=== PATIENT | female | born 1930 | race Caucasian/White ===

== ENCOUNTER → 2016-03-30 | Outpatient (REF) | payer OTHER ==
[~2016-03-30] MED LIST: /ESOM40CA OR; /PANT40TA; ACET500C; ACET65TA OR; ACULAR 0.5% OS; ALTA5CAP OR; AMLO10TA2 PO; ASPI1TAB PO; ASPI81TA63 OR; ATEN50TA2; ATEN50TA2 OR; ATEN50TA2 PO; BABY81CH; CALCCHW12; CALCCHW12 OR; CENTRUM SILVER OR; CHONDROITIN; GLUC500T3; GLUCOSAMIN; GLUCOSAMIN PO; ISOS30BRAN OR; LANO0.1211 OR; LANO0.1211 PO; LANO0.252; LASI20TA OR; LASIX; LEVA500T PO; LISI10TA4; NITR0.4S SL; NITR4TASL SL; PLAV75TA2 OR; PREDFORTE OS; RAMI5CA PO; RANI300T PO; SIMV20TA2 OR; SIMV20TA2 PO; TYLE650T35 PO; VITMTA PO; [UNRECOGNIZED DRUG - CODE] OR; [UNRECOGNIZED DRUG - OTHER] OS
== END ==
LOC: M LAB REF 15:56
PROVIDERS: ATTEND Internal Medicine
DX: I48.0 Paroxysmal atrial fibrillation (principal)

== ENCOUNTER → 2016-08-24 | Outpatient (REF) | payer OTHER ==
[~2016-08-24] MED LIST changes: +LEVA1TAB2 PO; -LEVA500T PO
== END ==
LOC: M LAB REF 16:50
PROVIDERS: ATTEND Nurse Practitioner Family
DX: R53.81 Other malaise (principal)

== ENCOUNTER → 2017-02-22 | Outpatient (REF) | payer OTHER ==
[2017-02-22 18:31] LABS: DIGOXIN LEVEL 0.8 NG/ML (0.5-2.0)
== END ==
LOC: M LAB REF 16:10
DX: I48.0 Paroxysmal atrial fibrillation (principal)
CPT/HCPCS: 80162

== ENCOUNTER → 2017-06-21 | Outpatient (REF) | payer OTHER ==
[2017-06-21 22:55] LABS: DIGOXIN LEVEL 0.9 NG/ML (0.5-2.0)
== END ==
LOC: M LAB REF 17:09
DX: I48.0 Paroxysmal atrial fibrillation (principal)
CPT/HCPCS: 80162

== ENCOUNTER → 2017-12-20 | Outpatient (REF) | payer OTHER ==
[2017-12-20 17:28] LABS: DIGOXIN LEVEL 0.6 NG/ML (0.5-2.0)
[2017-12-20 17:48] LABS: FOLATE > 24.0 NG/ML
== END ==
LOC: M LAB REF 16:29
DX: I48.0 Paroxysmal atrial fibrillation (principal); G60.9 Hereditary and idiopathic neuropathy, unspecified
CPT/HCPCS: 80162

== ENCOUNTER → 2018-11-21 | Outpatient (REF) | payer OTHER ==
[~2018-11-21] MED LIST changes: -/ESOM40CA OR; -/PANT40TA; -AMLO10TA2 PO; +AMLO10TA5 PO; -ASPI1TAB PO; +ASPI81TA26 PO; +LANO0.12 PO; -LANO0.1211 PO; +NEXI1CAP3 OR; +PROT1TAB2; +RAMI1CAP24 PO; -RAMI5CA PO
== END ==
LOC: M LAB REF 16:03
PROVIDERS: ATTEND Nurse Practitioner Family
DX: I48.0 Paroxysmal atrial fibrillation (principal)

== ENCOUNTER → 2018-12-24 | Outpatient (REF) | payer OTHER ==
[2018-12-25 14:12] LABS: BASO # 0.1 10^3/uL (0.0-0.2); EOS % 10.8 % (0.0-3.0); HEMATOCRIT 41.6 % (36.0-47.0); HEMOGLOBIN 12.9 g/dl (12.0-15.5); LYMPH # 1.9 10^3/uL (1.5-5.0); MEAN CORPUSCULAR VOLUME 106.4 fl (80.0-96.0); MONO # 0.8 10^3/uL (0.0-0.8); MONO % 9.2 % (0.0-5.0); NEUTROPHILS # 5.2 10^3/uL (1.5-8.5); NEUTROPHILS % 57.8 % (36.0-66.0); RED BLOOD COUNT 3.91 10^6/uL (4.00-5.40)
[2018-12-25 14:27] LABS: CALCIUM LEVEL 9.7 MG/DL (8.8-10.2); CREATININE FOR GFR 1.7 MG/DL (0.55-1.30); GLOMERULAR FILTRATION RATE 30.1 (>32); POTASSIUM SERUM 4.5 MEQ/L (3.5-5.1)
[2018-12-25 14:40] LABS: PLATELET COUNT, AUTOMATED 78 10^3/uL (150-450)
== END ==
LOC: M LABDRWAD 13:31
PROVIDERS: ATTEND Physician Assistant
DX: R30.0 Dysuria (principal)

== ENCOUNTER → 2018-12-26 | Outpatient (REF) | payer MEDICARE, OTHER | LOC: M LAB REF 12:47 | PROVIDERS: ATTEND Physician Assistant | DX: R30.0 Dysuria (principal) ==

== ENCOUNTER → 2019-01-07 | Outpatient (REF) | payer MEDICARE | LOC: M LAB REF 16:44 | PROVIDERS: ATTEND Internal Medicine | DX: I48.0 Paroxysmal atrial fibrillation (principal) ==

== ENCOUNTER 2019-01-10 15:34 | Inpatient (IN) | payer MEDICARE ==
[~2019-01-10] VITALS: Ht 162.6 cm; Wt 45.3 kg
[~2019-01-10 15:34] MED LIST changes: -SIMV20TA2 PO; +SIMV20TA22 PO
[2019-01-10 16:03] LABS: BASO # 0.1 10^3/uL (0.0-0.2); BASO % 0.9 % (0.0-1.0); EOS # 0.8 10^3/uL (0.0-0.5); EOS % 8.6 % (0.0-3.0); HEMATOCRIT 34.2 % (36.0-47.0); HEMOGLOBIN 10.8 g/dl (12.0-15.5); LYMPH # 2.4 10^3/uL (1.5-5.0); LYMPH % 28.1 % (24.0-44.0); MEAN CORPUSCULAR HEMOGLOBIN 33.1 pg (27.0-33.0); MEAN CORPUSCULAR HGB CONC 31.6 g/dl (32.0-36.5); MEAN CORPUSCULAR VOLUME 104.9 fl (80.0-96.0); MONO # 0.7 10^3/uL (0.0-0.8); MONO % 7.6 % (0.0-5.0); NEUTROPHILS # 4.7 10^3/uL (1.5-8.5); NEUTROPHILS % 54.5 % (36.0-66.0); RED BLOOD COUNT 3.26 10^6/uL (4.00-5.40); WHITE BLOOD COUNT 8.7 10^3/uL (4.0-10.0)
[2019-01-10 16:14] LABS: PLATELET COUNT, AUTOMATED 75 10^3/uL (150-450)
[2019-01-10 16:16] LABS: CALCIUM LEVEL 8.9 MG/DL (8.8-10.2); CREATININE FOR GFR 1.56 MG/DL (0.55-1.30); GLOMERULAR FILTRATION RATE 33.3 (>32); POTASSIUM SERUM 4.1 MEQ/L (3.5-5.1)
[2019-01-10] MEDS ORDERED: RANI300T PO (17:44)
[2019-01-10] MEDS ORDERED: DIGO0.12 PO (17:44)
[2019-01-10] MEDS ORDERED: ATEN25TA PO (17:44)
[2019-01-10] MEDS ORDERED: SIME1CAP3 PO (17:44)
[2019-01-10] MEDS ORDERED: ACETAMINOPHEN 650MG ER TAB (TYLENOL ARTHRITIS) PO PRN (18:00)
[2019-01-10] MEDS ORDERED: FAMOTIDINE 20 MG TAB PO PRN (18:00)
[2019-01-10] MEDS ORDERED: NITROGLYCERIN 0.4 MG SUBL TABLET SL PRN (18:00)
[2019-01-10] MEDS ORDERED: OXYMETAZOLINE NASAL SPRAY (AFRIN) PRN (18:00)
--- NOTE | 2019-01-10 18:32 | HPE ---
DATE OF ADMISSION: 01/10/2019 PRINCIPAL DIAGNOSIS: Severe left epistaxis with acute blood loss anemia. PRIMARY CARE PROVIDER: Dr. Byron Gordon HISTORY: Christina Woods is an 88-year-old admitted for observation after having a severe episode of epistaxis. She has not had any recent problems with epistaxis. The last this happened was several years ago. She had persisting bleeding from the left nostril, going on several hours. In the emergency room, she was cauterized but she did drop her hemoglobin 2 grams and so is being admitted for observation. PAST MEDICAL HISTORY: Shows coronary artery disease. She had a coronary stent placed 10 years ago. She is not on any antiplatelet medications nor anticoagulants. She has also had a pacemaker. 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 She has a history of hypertensive heart disease, gastroesophageal (GE) reflux, hyperlipidemia, osteoporosis with kyphosis. HOME MEDICATIONS: - simvastatin 20 mg daily - ramipril 5 mg twice a day - Tylenol as needed - Nitrostat as needed - atenolol 25 mg twice a day - digoxin 0.0625 mg daily - ranitidine 300 mg daily - simethicone as needed ALLERGIES: DEMEROL, TEMAZEPAM, THIOPENTAL. SOCIAL HISTORY: Nonsmoker. No alcohol. Attentive family members. REVIEW OF SYSTEMS: No chest pain, palpitations, headache, syncope. PHYSICAL EXAMINATION: Blood pressure 170/86, pulse of 53, respiratory rate 18, 94% oxygen saturation. GENERAL APPEARANCE: She was alert, conversant. She has a small amount of blood trickling from the left nostril. She has a lot of dried blood on the left side of her face in her hair. LUNGS: Clear. HEART: Regular rate and rhythm, 1/6 systolic ejection murmur. ABDOMEN: Soft, nontender. No masses. EXTREMITIES: No peripheral edema. Good pulses. NEUROLOGIC: Nonfocal. LABORATORY DATA: Hemoglobin is 10.8 which is down from her baseline of 12.9 on 12/24/2018, white count 8.7, platelets are 75,000 (they were 78,000 on 12/24/2018). Sodium 145, potassium 4.1, BUN 35, creatinine 1.5, GFR 33. IMPRESSION: 1. Left epistaxis, cauterized in the emergency room. She will be admitted for observation overnight. I spoke with Dr. Gamino from ears, nose and throat (ENT). He has been consulted and is available should she have recurrence of bleeding. I have ordered Afrin nasal spray but this should be held if her systolic blood pressure is less than 150. We will also humidify oxygen. Followup complete blood count (CBC) has been ordered in the morning. 2. Thrombocytopenia. This is chronic. Her platelets were 88,000 on 01/16/2016, 100,000 on 01/15/2016, and 78,000 on . 3. Chronic kidney disease, stage III. This is also chronic. Baseline creatinine is around 1.5. Anticipate discharge in the morning if hemoglobin is stable and she does not have recurrence of the bleeding.
[2019-01-10 18:46] LABS: INR 1.24; PROTHROMBIN TIME 15.3 SECONDS (11.8-14.0)
[2019-01-10] MEDS ORDERED: hydrALAZINE INJ 20 MG/ML VIAL IV SCH ×2 (19:30→21:15)
[2019-01-10] MEDS: ATENOLOL 25 MG TAB PO SCH (19:33)
[2019-01-10] MEDS: RAMIPRIL 5 MG CAP PO SCH (19:40)
[2019-01-10] MEDS: CEFUROXIME 250 MG TAB PO SCH (21:00)
[2019-01-10] MEDS ORDERED: hydrALAZINE INJ 20 MG/ML VIAL As Ordered ONE (21:04)
[2019-01-10] MEDS: hydrALAZINE INJ 20 MG/ML VIAL IV SCH ×2 (21:15→23:58)
[2019-01-10] MEDS ORDERED: LISINOPRIL 20 MG TAB PO ONE (21:15)
[2019-01-10] MEDS: SIMVASTATIN 20 MG TAB PO SCH (21:36)
[2019-01-10 23:00] VITALS: BP 139/82
[2019-01-10] MEDS: DIGOXIN 0.0625MG PER 1/2TABLET PO SCH (23:58)
[2019-01-11] VITALS: BP 178/80
[2019-01-11 04:00] VITALS: BP 164/80
[2019-01-11] MEDS: hydrALAZINE INJ 20 MG/ML VIAL IV SCH ×2 (04:14→10:04)
[2019-01-11 05:38] LABS: HEMATOCRIT 28.2 % (36.0-47.0); HEMOGLOBIN 9.1 g/dl (12.0-15.5); MEAN CORPUSCULAR HGB CONC 32.3 g/dl (32.0-36.5); MEAN CORPUSCULAR VOLUME 102.2 fl (80.0-96.0); RED BLOOD COUNT 2.76 10^6/uL (4.00-5.40); WHITE BLOOD COUNT 9.3 10^3/uL (4.0-10.0)
[2019-01-11 05:40] LABS: PLATELET COUNT, AUTOMATED 67 10^3/uL (150-450)
[2019-01-11 05:52] LABS: CALCIUM LEVEL 9.1 MG/DL (8.8-10.2); CREATININE FOR GFR 1.54 MG/DL (0.55-1.30); GLOMERULAR FILTRATION RATE 33.8 (>32)
[2019-01-11 08:00] VITALS: BP 158/78
[2019-01-11] MEDS: ATENOLOL 25 MG TAB PO SCH ×2 (09:00→21:13)
[2019-01-11] MEDS: RAMIPRIL 5 MG CAP PO SCH ×2 (10:06→21:15)
[2019-01-11] MEDS: CEFUROXIME 250 MG TAB PO SCH ×2 (10:13→21:13)
--- NOTE | 2019-01-11 12:13 | IPN ---
DATE: 01/11/2019 Christina was admitted with epistaxis. Her hemoglobin has drifted down a bit from yesterday. The patient tells me that she has had persisting epistaxis but nursing staff indicates that she is not rebleeding. She is 88 and has some dementia. Her hemoglobin is down a little. PHYSICAL EXAMINATION: Afebrile. 150/78. HEENT: She has nasal packing in her left nostril. There is no active bleeding. There is no bleeding in the pharynx. LUNGS: Clear. HEART: Regular rhythm. /6 systolic ejection murmur. ABDOMEN: Soft, nontender. No masses. LABORATORIES: Hemoglobin 9.1, her baseline hemoglobin is 12.9, it was 10.8 yesterday and it is 9.1 today. BUN is up a little bit, probably from the swallowed blood being absorbed in the upper GI tract. Creatinine is stable. IMPRESSION: 1. Epistaxis. I think that the bleeding is essentially resolved, but her hemoglobin is down and it would be safer to watch her for another day and discharge her tomorrow. 2. Hypertension. Blood pressure is mildly elevated. She is on her home blood pressure regimen. We will augment this with low dose of amlodipine starting this morning.
[2019-01-11 12:48] VITALS: BP 130/78
[2019-01-11 14:39] LABS: APPEARANCE, URINE CLEAR (CLEAR); BACTERIA, URINE AUTO NEGATIVE (NEGATIVE); BILIRUBIN, URINE AUTO NEGATIVE (NEGATIVE); BLOOD, URINE BLOOD 1+ (NEGATIVE); COLOR, URINE YELLOW (YELLOW); GLUCOSE, URINE (UA) AUTO NEGATIVE (NEGATIVE); KETONE, URINE AUTO NEGATIVE (NEGATIVE); LEUKOCYTE ESTERASE, URINE AUTO NEGATIVE (NEGATIVE); MUCUS, URINE SMALL (NEGATIVE); NITRITE, URINE AUTO NEGATIVE (NEGATIVE); PROTEIN, URINE AUTO 3+ mg/dL (NEGATIVE); RBC, URINE AUTO 22 /HPF (0-3); SPECIFIC GRAVITY URINE AUTO 1.015 (1.002-1.035); SQUAMOUS EPITHELIAL CELL UR AU 1 /HPF (0-6); UROBILINOGEN, URINE AUTO 0.2 mg/dL (0.0-2.0); WBC, URINE AUTO 4 /HPF (0-3)
--- NOTE | 2019-01-11 14:48 | REP ---
REASON: Altered mental status. COMPARISON: Multiple, the latest 01/15/2016. AP and lateral views were obtained. There is cardiomegaly accentuated by technique. 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 There is a dual-chamber bipolar pacemaker device in place, the leads are contiguous, appropriate, and unchanged. There is a calcified granuloma in the right lower lobe status quo. This is an incidental finding. The lung amezcua are otherwise clear. The osseous structures are stable and intact. IMPRESSION: No evidence of acute cardiopulmonary disease. Chronic changes as described above. Electronically Signed by Brice Robertson DO 01/11/2019 03:09 P
[2019-01-11 16:00] VITALS: BP 140/76
[2019-01-11 20:00] VITALS: BP 144/74
[2019-01-11] MEDS: SIMVASTATIN 20 MG TAB PO SCH (21:13)
[2019-01-11] MEDS: DIGOXIN 0.0625MG PER 1/2TABLET PO SCH (21:13)
[2019-01-12] VITALS (11 sets, daily range): BP systolic 95–172; BP diastolic 62–90
[2019-01-12 07:53] LABS: CALCIUM LEVEL 9.1 MG/DL (8.8-10.2); CREATININE FOR GFR 1.63 MG/DL (0.55-1.30); GLOMERULAR FILTRATION RATE 31.6 (>32); POTASSIUM SERUM 4.2 MEQ/L (3.5-5.1)
[2019-01-12 08:23] LABS: HEMATOCRIT 29.3 % (36.0-47.0); HEMOGLOBIN 9.3 g/dl (12.0-15.5); MEAN CORPUSCULAR HEMOGLOBIN 33.1 pg (27.0-33.0); MEAN CORPUSCULAR HGB CONC 31.7 g/dl (32.0-36.5); MEAN CORPUSCULAR VOLUME 104.3 fl (80.0-96.0); RED BLOOD COUNT 2.81 10^6/uL (4.00-5.40); WHITE BLOOD COUNT 9.2 10^3/uL (4.0-10.0)
[2019-01-12 08:33] LABS: PLATELET COUNT, AUTOMATED 75 10^3/uL (150-450)
[2019-01-12] MEDS: RAMIPRIL 5 MG CAP PO SCH ×2 (08:56→22:21)
[2019-01-12] MEDS: CEFUROXIME 250 MG TAB PO SCH ×2 (08:56→21:42)
[2019-01-12] MEDS: ATENOLOL 25 MG TAB PO SCH (08:57)
[2019-01-12] MEDS ORDERED: CEFU1TAB20 PO (10:30)
[2019-01-12] MEDS ORDERED: FERR325T3 PO (10:30)
--- NOTE | 2019-01-12 10:51 | DSES ---
DATE OF ADMISSION: 01/10/2019 DATE OF DISCHARGE: PRINCIPAL DIAGNOSIS: Anterior epistaxis with acute blood loss anemia. SECONDARY DIAGNOSES: Hyperlipidemia. Hypertensive heart disease. Chronic thrombocytopenia. Stage III chronic kidney disease. Presumed atrial fibrillation. PRIMARY CARE PROVIDER: Dr. Byron Gordon MD HISTORY: Christina Woods was admitted with anterior epistaxis left nostril that was persisting despite emergency room cauterization. Her hemoglobin dropped 2 grams from baseline so she was admitted for observation. She was not on anticoagulants or antiplatelet medicines. HOSPITAL COURSE: She was admitted to a medical bed. She rebled from the left nostril in the emergency room so a "Rhino Rocket" was placed. ENT was consulted, but they never ended up needing to see her as the second procedure stopped the bleeding. We watched her in the hospital. Her hemoglobin ended up dropping down to 9.1 the day before discharge, but was stable at 9.3 on the day of discharge. She has chronic kidney disease stage III. Her renal functions remained stable. She had a little confusion the day before discharge. Some of this I think was related to hospitalization and having a packing in. We checked her digoxin level and it was therapeutic at 0.5. Today she is back to baseline mental status. Her son was with her. We had a long discussion. He thought she was back to her usual self. PHYSICAL EXAMINATION: 148/78, pulse 62, respiratory rate 17, 96% oxygen saturation. General appearance: She is resting comfortably with no distress. Left nasal packing in place. Lungs clear. Heart regular rhythm, 2/6 systolic ejection murmur. Abdomen soft, nontender, no masses. No peripheral edema. LABORATORIES: White count 9.2, hemoglobin 9.3, platelets 75. Sodium 143, potassium 4.2, BUN 38, creatinine 1.6, glucose 99, digoxin level 0.5. DISPOSITION: Patient discharged home with improved and stable condition. She will followup with Dr. Gordon in a week. Dr. Gamino from the ENT group in our phone conversation said that he would see the patient either the day after or two days after discharge so we are setting that up before discharge. Packing is still in place on discharge and this will be attended to by the ENT group. Activity as tolerated. She is on a no added salt diet. Her only new medication is Ceftin 250 mg twice a day for three more days for prevention of sinusitis due to the nasal packing. Otherwise, she will continue atenolol 25 mg twice a day, digoxin 0.0625 mg at bedtime, ramipril 5 mg twice a day, ranitidine 300 mg daily, simethicone as needed, simvastatin 20 mg at bedtime. I have advised that they start some supplemental iron, ferrous sulfate 325 mg daily with appropriate bowel care to prevent constipation. At the time of this dictation there are no pending labs.
[2019-01-12] MEDS ORDERED: ATENOLOL 25 MG TAB PO ONE (11:15)
--- NOTE | 2019-01-12 11:36 | IPN ---
DATE: 01/12/2019 I discharged Christina this morning. Her son was getting ready to take her home when she became suddenly tachycardic. Her heart rate has been in the 60s all morning and abruptly became about 140. Looked like a sinus tachycardia. Per the son, she does this "once or twice a month." Associated with the tachycardia is having pressure in the chest with shortness of breath. I canceled her discharge, gave her supplemental oxygen. We gave her a stat dose of atenolol 25 mg daily to supplement the morning dose of 25 she had already received and I ordered sublingual nitroglycerin. Stat EKG was obtained and shows some left anterior fascicular block, baseline LVH with ST changes, marked ST depression in her lateral precordial leads, ST elevation in V1, ST depression in lateral limb leads. I found a previous EKG from 01/03/2019 and it looks essentially the same as the current EKG, suggesting that this is probably her baseline. Consultation has been placed with Dr. Gonzalez, who is the patient's outpatient assistant professor of biochemistry. We discussed the case and he will see her in consultation. No antiplatelet medication has been given due to the patient's severe epistaxis requiring hospitalization and packing.
[2019-01-12 11:54] LABS: CK-MB VALUE MASS < 1.0 NG/ML (<3.6); CPK CREATINE PHOSPHOKINASE 43 U/L (26-192); MB/CK RELATIVE INDEX 2.33 (< OR =4); TROPONIN I < 0.02 NG/ML (< 0.10)
--- NOTE | 2019-01-12 12:55 | CR ---
DATE OF CONSULTATION: 01/12/2019 REFERRING PHYSICIAN: Dr. Callahan INDICATION: Narrow complex tachycardia. HISTORY OF PRESENT ILLNESS: Mrs. Woods is known to me. She is an 88-year-old lady who has a history of coronary artery disease with remote coronary intervention, status post pacemaker placement for sick sinus syndrome and history of recurrent supraventricular tachycardia. She was admitted with epistaxis. It was fairly severe and there was significant drop in hemoglobin. She needed a packing by ENT. Today she was getting ready to go home when she suddenly developed narrow complex tachycardia with heart rate fluctuating between 125 and 140 beats per minute associated with severe chest discomfort. She eventually received additional dose of atenolol and sublingual nitroglycerin and the arrhythmia suddenly stopped. She has been feeling much better now. Most of the history was provided by her son who is at the bedside. He tells me that she has similar episodes about once or twice a month. This has been the case for years and I was well aware of it. We previously offered or recommended that she undergoes EP evaluation and/or alternative antiarrhythmics including amiodarone, but the patient unfortunately refused. PAST MEDICAL HISTORY: 1. Coronary artery disease, status post percutaneous coronary intervention (PCI) to left anterior descending (LAD). Her last cardiac catheterization was in 2011 and revealed patent stent in LAD and no additional obstructive disease. Her last echocardiogram on my record was from 2010 and revealed normal LV systolic function, grade 1 diastolic dysfunction and mild pulmonary hypertension. She had an event recorder in February 2012 that revealed episodes of narrow complex tachycardia at about 120 bpm corresponding to her described palpitations. Very likely the same arrhythmia we are recording today. 2. Hypertension. 3. Dyslipidemia. 4. Chronic renal insufficiency stage III. 5. Chronic thrombocytopenia. OUTPATIENT MEDICATIONS: - atenolol 25 twice a day - digoxin 0.125 mg every other day - ramipril 5 mg a day - ranitidine 300 mg daily - simvastatin 20 mg at night SURGICAL HISTORY: Positive for resection of skin cancer on couple areas. Pacemaker placement with generator replacement. FAMILY HISTORY: Positive for CAD in both parents. SOCIAL HISTORY: The patient lives with significant other. Her sons are very attentive. She does not smoke and does not drink a significant amount of alcohol. REVIEW OF SYSTEMS: She denies any recent fever, chills, nausea, vomiting, no chest pain other than those associated with episodes of palpitations. No syncope but unfortunately there has been additional weight gain and apparently she has relatively limited oral intake with few exceptions of food that she really likes. Also, her activity level has been lately decreasing because it has been challenging for her to ambulate on account of leg weakness and knee pains. PHYSICAL EXAMINATION: Mrs. Woods is an elderly frail woman. She appears to me much older than I remember from her last visit 6 months ago. Blood pressure 135/77, heart rate currently in low 60s. She is afebrile. Saturation is 96% on room air. She is alert and oriented even though I need to wake her up in order to elicit some answers. Her JVP is not high. Lungs are clear. Good air movement. Heart exam reveals regular rhythm. I do not appreciate any gallop or rub. There is pacemaker in subclavian pocket. Abdomen is soft without tenderness. Extremities are free of edema. Peripheral pulses are palpable. There is packing in her left nostril. LABORATORY: Basic metabolic panel - sodium 143, potassium 4.2, BUN 38, creatinine 1.6, glucose 99. Cardiac enzymes are negative. Digoxin level was 0.5. INR was 1.2. CBC reveals hemoglobin 9.3, hematocrit 29.3, platelet count 75,000. Her admission hemoglobin was 10 and hematocrit 34, platelet count is similar to chronic findings. Urinalysis was 3+ positive for protein. Initial ECG revealed sinus rhythm with narrow QRS complex. The second EKG during the arrhythmia reveals narrow complex tachycardia with ventricular rate of 140 beats per minute. There are ischemic ST-segment abnormalities. Chest x-ray is unremarkable. No obvious cardiomegaly, congestive heart failure and appropriate lead position. ASSESSMENT/PLAN Mrs. Woods is an elderly woman who has chronic coronary artery disease with remote history of intervention who also has recurrent episodes of narrow complex tachycardia that is very symptomatic. This is on baseline digoxin 0.125 mg every other day plus atenolol 25 twice a day. She has had similar presentation for many years. In the past I offered various antiarrhythmics, most recently principally amiodarone and also offered electrophysiology intervention, but the patient always refused. At this point I think that our options are limited. I agree with Dr. Callahan with increasing the dose of beta-audi. I probably would continue the dose of digoxin as it is. What is unpleasant is that her atrial lead is malfunctioning, consequently if she gets overly bradycardic she has asynchronous ventricular pacing which is certainly also creating symptoms. Consequently, we are always trying to reduce the dose of beta blockers to allow spontaneous AV conduction. Nevertheless, I think that this continues lesser evil compared with episodes of SVT. I talked about this with her son. If she does not allow us to use additional antiarrhythmics I believe this is probably the only option. We should also consider possibility of EP study, but in her advanced age and overall very frail status, I am somewhat skeptical that she will be found to be a good candidate. As far as the ischemic changes or ECGs are concerned, I think it is probably a matter of tachycardia. I do not believe that it makes a diagnosis of obstructive CAD. Considering that she is chronically thrombocytopenic and just was admitted with severe epistaxis, I do not believe that we should put her on any antiplatelet agents.
[2019-01-12 17:54] LABS: CK-MB VALUE MASS 1.3 NG/ML (<3.6); MB/CK RELATIVE INDEX 3.17 (< OR =4); TROPONIN I 0.03 NG/ML (< 0.10)
--- NOTE | 2019-01-12 21:16 | ECGEPIP ---
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 : 1930 Requested By: Rolando Callahan Order Number: [id number] Reading MD: Markos Gonzalez Measurements Intervals [place] Rate: 144 P: [place]: 0 QRS: -64 QRSD: 92 T: 154 QT: 188 QTc: 291 Interpretive Statements ATRIAL FLUTTER/TACHYCARDIA WITH RAPID VENTRICULAR RESPONSE S1-S2-S3 PATTERN, CONSISTENT WITH PULMONARY DISEASE, RVH, OR NORMAL VARIANT LEFT ANTERIOR FASCICULAR BLOCK LEFT VENTRICULAR HYPERTROPHY AND ST-T CHANGE ANTERIOR MYOCARDIAL INFARCTION, OF INDETERMINATE AGE MARKED ST DEPRESSION, CONSIDER SUBENDOCARDIAL INJURY OVERALL VERY SIMILAR TO 01/15/16 Electronically Signed on 01-12-2019 21:16:02 EST by Markos Gonzalez
[2019-01-12] MEDS: SIMVASTATIN 20 MG TAB PO SCH (21:43)
[2019-01-12] MEDS: ATENOLOL 50 MG TAB PO SCH (21:43)
[2019-01-12] MEDS: DIGOXIN 0.0625MG PER 1/2TABLET PO SCH (21:44)
[2019-01-13 01:21] LABS: CK-MB VALUE MASS 1.1 NG/ML (<3.6); MB/CK RELATIVE INDEX 2.97 (< OR =4); TROPONIN I 0.02 NG/ML (< 0.10)
[2019-01-13 04:00] VITALS: BP 135/62
[2019-01-13 05:46] LABS: HEMATOCRIT 25.8 % (36.0-47.0); HEMOGLOBIN 8.2 g/dl (12.0-15.5); MEAN CORPUSCULAR HEMOGLOBIN 33.2 pg (27.0-33.0); MEAN CORPUSCULAR HGB CONC 31.8 g/dl (32.0-36.5); MEAN CORPUSCULAR VOLUME 104.5 fl (80.0-96.0); RED BLOOD COUNT 2.47 10^6/uL (4.00-5.40); WHITE BLOOD COUNT 7.4 10^3/uL (4.0-10.0)
[2019-01-13 06:00] LABS: PLATELET COUNT, AUTOMATED 72 10^3/uL (150-450)
[2019-01-13 06:09] LABS: BLOOD UREA NITROGEN 35 MG/DL (7-18); CALCIUM LEVEL 8.1 MG/DL (8.8-10.2); CARBON DIOXIDE LEVEL 26 MEQ/L (21-32); CHLORIDE LEVEL 110 MEQ/L (98-107); CREATININE FOR GFR 1.47 MG/DL (0.55-1.30); GLOMERULAR FILTRATION RATE 35.6 (>32); GLUCOSE, FASTING 96 MG/DL (70-100); SODIUM LEVEL 141 MEQ/L (136-145)
[2019-01-13 08:00] VITALS: BP 156/75
--- NOTE | 2019-01-13 08:13 | IPN ---
DATE: 01/13/2019 Mrs. Woods had a good night. There was no recurrence of supraventricular tachycardia (SVT) and she did not have any chest pain. She tells me that she is feeling much better this morning. Vital Signs: Blood pressure 135/62. Heart rate has been mostly in 50s and when she would dip below 50 she would start ventricular paced. Saturation 99% on room air. Blood pressure 135/62. She has been afebrile. Her weight has been documented at 45.3 kg, similar to all the way throughout this hospitalization. Her jugular venous pulse (JVP) does not appear high. Lungs are relatively clear even though she has some occasional end-inspiratory crackles mostly over bases. Very kyphotic spine. Heart exam reveals regular rhythm. There is a faint murmur best heard over the aortic valve area systolic in nature. I do not appreciate any gallop. Abdomen is soft without tenderness. No edema. Neurologically, she is alert and oriented and appropriate and otherwise intact. Laboratories: CBC: Hemoglobin 8.2, hematocrit 25.8 and platelet count 72,000. WBC count 7.4. Basic metabolic panel with sodium 141, potassium 4.0, BUN 35, creatinine 1.5 and glucose 96. Three sets of cardiac enzymes that have been negative. ASSESSMENT/PLAN: Mrs. Woods is an 88-year-old female who has a history of coronary artery disease (CAD) with intervention to left anterior descending (LAD) years ago who presented with epistaxis and during the hospitalization developed narrow complex tachycardia with associated chest discomfort and ST segment depressions. The arrhythmia stopped after less than an hour after administration of additional beta blockers. This has been a chronic pattern for her. She has had similar episodes for years. Unfortunately, she was never open to trying different antiarrhythmics and she also was not willing to undergo EP study. Consequently, she has been chronically on atenolol and digoxin. The dose of atenolol was doubled yesterday, I think we can leave the medications as they are. I am little bit concerned that she will be bradycardic enough in order to cause a lot of ventricular pacing which is not desirable, but still preferential compared to episodes of SVT. If this should not be successful, then I will have to approach again the possibility of starting amiodarone that she was adamantly against. Otherwise, her blood pressure seems to be reasonably well-controlled and I do not have any additional recommendations. Her hemoglobin has dropped some compared to yesterday even though there has not been any visible bleeding and the epistaxis has stopped. I will leave the decision regarding further management of this issue to the primary care team. She currently does not take any antiplatelet medications or any anticoagulation.
[2019-01-13] MEDS: ATENOLOL 50 MG TAB PO SCH (09:00)
[2019-01-13 10:07] LABS: CK-MB VALUE MASS < 1.0 NG/ML (<3.6); CPK CREATINE PHOSPHOKINASE 115 U/L (26-192); MAGNESIUM LEVEL 2.2 MG/DL (1.8-2.4); MB/CK RELATIVE INDEX 0.87 (< OR =4); TROPONIN I 0.02 NG/ML (< 0.10)
[2019-01-13] MEDS: RAMIPRIL 5 MG CAP PO SCH (10:31)
[2019-01-13] MEDS: CEFUROXIME 250 MG TAB PO SCH (10:31)
[2019-01-13 10:32] VITALS: BP 156/76
[2019-01-13 12:00] VITALS: BP 150/70
[2019-01-13] MEDS ORDERED: ATEN50TA2 PO (12:59)
--- NOTE | 2019-01-13 13:06 | IPNPDOC ---
Text Note Date of Service The patient was seen on 01/13/19. NOTE Subjective: Feels well, eager and anxious to go home. Son at bedside, asking for her to be discharged. Objective: Vitals: Hemodynamically stable and afebrile. HR now high 40s and 50s with asymptomatic bradycardia HEENT: She has nasal packing in her left nostril, no sign of active bleeding. LUNGS: CTAB HEART: RRR at this time, with 1/6 systolic ejection murmur. ABDOMEN: Normoactive bowel soudns, soft, nontender Extremities: WWP, no edema Labs: H/H drifted down to 8.2/25.8, Cr 1.47. Reviewed Assessment: 88 yo woman with a history of hyperlipidemia, hypertension, chronic thrombocytopenia, stage III chronic kidney disease and presumed atrial fibrillation who was admitted for epistaxis with acute blood loss anemia that improved with packing and was going to be discharged home yesterday with ENT and PCP follow up but prior to departure developed acute chest pain with noted SVT with EKG showing narrow complex tachycardia with some ST depression and discharge was deferred and cardiology consulted, while her atenolol was doubled to 50mg BID dosing with good effect, now c/b asymptomatic bradycardia. In speaking with Dr. Velásquez, will keep the 50 BID and discharge home for outpatient follow up as patient has a pacer that will kick in for bradycardia below 45. Will therefore discharge home this afternoon. Discharge summary was completed yesterday therefore this progress note is her discharge note. Epistaxis: -ENT to remove packing this after -Continue empiric ceftin for 5d course as prescribed -check one more H/H now to check for continued downtrend althoug no more signs of recurrent epistaxis at this time Chest pain with noted SVTs: -continue increased dose of atenolol 50mg BID -Dr. Velásquez predicted that she would likely have bradycardia but has a pacer that kicks in when <45. Had discussed antiarrhythmic therapies with her including amio that she has declined before, will continue conversation as an outpatient. -continue digoxin, level was recently checked and therapeutic -Will plan for outpatient cardiology follow up Hypertension: -continue home ramipril, discontinue novarsc that was added this admission as she just had her atenolol increased Hyperlipidemia: -continue simvastatin GERD: -continue pepcid Will discharge home after she is seen by ENT today. VS,Marvinbone, I+O VS, Fishbone, I+O Laboratory Tests 01/13/19 05:24 Vital Signs Date Time Temp Pulse Resp B/P (MAP) Pulse Ox O2 Delivery O2 Flow Rate FiO2 01/13/19 04:00 97.5 53 16 135/62 (86) 99 Room Air I&O- Last 24 Hours up to 6 AM 01/13/19 06:00 Intake Total 600 ml Output Total 400 ml Balance 200 ml AKOSUA KNIGHT MD Jan 13, 2019 08:39
[2019-01-13 13:42] LABS: HEMOGLOBIN 10.1 g/dl (12.0-15.5); MEAN CORPUSCULAR HEMOGLOBIN 32.8 pg (27.0-33.0); MEAN CORPUSCULAR HGB CONC 30.6 g/dl (32.0-36.5); MEAN CORPUSCULAR VOLUME 107.1 fl (80.0-96.0); RED BLOOD COUNT 3.08 10^6/uL (4.00-5.40); WHITE BLOOD COUNT 10.1 10^3/uL (4.0-10.0)
[2019-01-13 13:46] LABS: PLATELET COUNT, AUTOMATED 84 10^3/uL (150-450)
--- NOTE | 2019-01-13 20:33 | ECGEPIP ---
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
--- NOTE | 2019-01-14 13:32 | CR ---
DATE OF CONSULTATION: 01/13/2019 REASON FOR CONSULTATION: Patient with cautery and packing placed for epistaxis and the patient had significant hypertension planning to be discharged finally today and would like to have the packing removed. This pleasant lady was admitted on 01/10/2019, hae significant hypertension. She also has a history of hypertensive heart disease, chronic thrombocytopenia, stage III chronic kidney disease, and atrial fibrillation when she came to emergency room. Apparently, she had continued bleeding over the course of the day before she was brought in, initially cauterized by the emergency room (ER) physician, which had controlled it, and her blood pressure still was around the 200/100 range. It was cauterized and then she rebled again and then an anterior pack was placed left side. The patient had multiple other issues during hospitalization. Started having chest pains. Octave Board Racker did come in and reevaluate her. Initially, her hematocrit had stabilized over the last 2 days but today apparently it had a dropped a little bit. Initially when she came in was 34.2, then it was on 01/11/2019 28.2 and 29.3 and then 25.5 today. She has been stabilized and cleared by cardiology. She was scheduled to have the packing removed in my clinic today. At this point, we have decided that it is probably safer to come over and remove it from there. The nurses report no bleeding in the posterior oropharynx or in the hypopharynx during this period time, and has had no bleeding since she has been on the floor. She does have some dementia as well. PHYSICAL EXAMINATION: The patient is in room 3228 with her son at bedside and nurses present. She is pleasant. Currently, her vital signs show temperature 98.1, blood pressure 150/70. Pulse oximetry on room air was 99%. The patient has a left anterior rhino rocket in place. Posterior oropharynx shows no bleeding. At this point, procedure to remove the anterior packing the patient was preoxygenated with 10 liters of oxygen and she was told to breathe nice and smoothly through her oral cavity, which she did. The air was removed from the packing and then the packing was hydrated with saline. This was allowed to sit for 5 minutes while she preoxygenated, then the anterior pack was removed. There was no bleeding. Anterior septum showed the area where she had cautery before. There was no bleeding. Posterior oropharynx was clear. She was placed back on oxygen and the nurse will get a humidified circuit. We did this because yesterday she was ready to be discharged and then she had some arrhythmias, and she has a history of cardiac issues evaluated by her project reservoir engineer as well. Labs: She had a repeat lab for this morning. She had a hematocrit that was apparently 24.5 but then when redrawn today it was 33.0. Packing had been removed successfully with no bleeding. The patient is planned for discharge and the son is ready to get her set up to go. The patient had no problems. There is no complications. IMPRESSION: Epistaxis in the face of significant hypertension most likely as the culprit. Also, the patient has thrombocytopenia and also when she came in was on Coumadin. She is does not have a humidifier vaporizer in the bedroom. PLAN: At this point, the patient was told she should have a humidifier vaporizer in the bedroom or whatever room she is in, keep it moist and then blood pressure management will be left up to her project reservoir engineer as well as her primary care physician. The patient tolerated procedure well. The patient was left in the care of the nurse and she had no untoward sequelae from this.
== END 2019-01-13 16:24 | disposition home or self-care (01) | DRG 309 ==
LOC: M ED 15:34 → M ED INP 15:35 → M PCU 22:54 → OBSVTOIN 01-12 10:59
PROVIDERS: ADMIT Family Medicine; ATTEND Family Medicine
DX: I47.1 Supraventricular tachycardia (principal); D62 Acute posthemorrhagic anemia; R04.0 Epistaxis; D69.6 Thrombocytopenia, unspecified; N18.3 Chronic kidney disease, stage 3 (moderate); I48.91 Unspecified atrial fibrillation; E78.5 Hyperlipidemia, unspecified; Z79.899 Other long term (current) drug therapy; I25.10 Atherosclerotic heart disease of native coronary artery without angina pectoris; Z95.2 Presence of prosthetic heart valve; Z95.0 Presence of cardiac pacemaker; K21.9 Gastro-esophageal reflux disease without esophagitis; M81.0 Age-related osteoporosis without current pathological fracture; Z88.8 Allergy status to other drugs, medicaments and biological substances; Z85.828 Personal history of other malignant neoplasm of skin; I13.10 Hypertensive heart and chronic kidney disease without heart failure, with stage 1 through stage 4 chronic kidney disease, or unspecified chronic kidney disease

== ENCOUNTER 2019-02-09 23:21 | Emergency (ER) | payer MEDICARE ==
[~2019-02-09] VITALS: Ht 162.6 cm; Wt 47.7 kg
[~2019-02-09 23:21] MED LIST changes: +ATEN25TA PO; +CEFU1TAB20 PO; +DIGO0.123 PO; +FERR325T3 PO; +SIME1CAP3 PO
[2019-02-10] MEDS ORDERED: OXYMETAZOLINE NASAL SPRAY (AFRIN) ONE (00:15)
[2019-02-10 01:13] LABS: BASO # 0.1 10^3/uL (0.0-0.2); BASO % 0.9 % (0.0-1.0); EOS # 0.7 10^3/uL (0.0-0.5); EOS % 11.2 % (0.0-3.0); HEMATOCRIT 29.2 % (36.0-47.0); HEMOGLOBIN 9.1 g/dl (12.0-15.5); LYMPH # 1.4 10^3/uL (1.5-5.0); LYMPH % 21.4 % (24.0-44.0); MEAN CORPUSCULAR HEMOGLOBIN 33.5 pg (27.0-33.0); MEAN CORPUSCULAR HGB CONC 31.2 g/dl (32.0-36.5); MEAN CORPUSCULAR VOLUME 107.4 fl (80.0-96.0); MONO # 0.5 10^3/uL (0.0-0.8); MONO % 8.2 % (0.0-5.0); NEUTROPHILS # 3.7 10^3/uL (1.5-8.5); NEUTROPHILS % 57.8 % (36.0-66.0); RED BLOOD COUNT 2.72 10^6/uL (4.00-5.40); WHITE BLOOD COUNT 6.5 10^3/uL (4.0-10.0)
[2019-02-10 01:15] LABS: PLATELET COUNT, AUTOMATED 79 10^3/uL (150-450)
[2019-02-10 01:38] LABS: CALCIUM LEVEL 8.5 MG/DL (8.8-10.2); CREATININE FOR GFR 1.52 MG/DL (0.55-1.30); GLOMERULAR FILTRATION RATE 34.3 (>32); POTASSIUM SERUM 4.3 MEQ/L (3.5-5.1)
[2019-02-10 01:46] LABS: INR 1.31
[2019-02-10 01:47] LABS: PARTIAL THROMBOPLASTIN TIME 35.5 SECONDS (25.0-38.4)
[2019-02-10 02:37] VITALS: BP 167/70
== END 2019-02-10 02:43 | disposition home or self-care (01) ==
LOC: M ED 23:21
DX: R04.0 Epistaxis (principal); I25.10 Atherosclerotic heart disease of native coronary artery without angina pectoris; I10 Essential (primary) hypertension; Z79.899 Other long term (current) drug therapy; Z88.8 Allergy status to other drugs, medicaments and biological substances

== ENCOUNTER 2019-03-08 08:55 | Inpatient (IN) | payer MEDICARE ==
[2019-03-08] VITALS (10 sets, daily range): BP systolic 128–172; BP diastolic 67–89
[~2019-03-08] VITALS: Ht 162.6 cm; Wt 48.0 kg
[2019-03-08] MEDS ORDERED: SILVER NITRATE APPLICATOR TOP ONE (09:45)
[2019-03-08] MEDS ORDERED: OXYMETAZOLINE NASAL SPRAY (AFRIN) ONE (09:45)
[2019-03-08 10:15] LABS: BASO # 0.1 10^3/uL (0.0-0.2); BASO % 0.7 % (0.0-1.0); EOS # 0.6 10^3/uL (0.0-0.5); EOS % 5.1 % (0.0-3.0); HEMATOCRIT 30.2 % (36.0-47.0); HEMOGLOBIN 9.2 g/dl (12.0-15.5); LYMPH # 1.7 10^3/uL (1.5-5.0); LYMPH % 15.3 % (24.0-44.0); MEAN CORPUSCULAR HEMOGLOBIN 32.6 pg (27.0-33.0); MEAN CORPUSCULAR HGB CONC 30.5 g/dl (32.0-36.5); MEAN CORPUSCULAR VOLUME 107.1 fl (80.0-96.0); MONO # 0.7 10^3/uL (0.0-0.8); MONO % 6.5 % (0.0-5.0); NEUTROPHILS % 71.9 % (36.0-66.0); PLATELET COUNT, AUTOMATED 103 10^3/uL (150-450); RED BLOOD COUNT 2.82 10^6/uL (4.00-5.40); WHITE BLOOD COUNT 11.2 10^3/uL (4.0-10.0)
--- NOTE | 2019-03-08 10:19 | REP ---
Chest x-ray: Two views. History: Dizziness and cough. Comparison chest x-ray January 16, 2019. Findings: Cardiomegaly with bipolar pacemaker is seen. The lungs are symmetrically aerated and clear. The pleural angles are sharp. There is a granulomatous calcification in the right lower lobe of the lung. The aorta is calcific and rather tortuous unchanged. Mild levoconvex thoracic curvature is seen. No infiltrate is seen. Impression: Cardiomegaly with pacemaker. Right lower lobe granuloma. Otherwise no active disease. Electronically Signed by Henry Eddy MD 03/08/2019 10:10 A
[2019-03-08 10:25] LABS: INR 1.17; PROTHROMBIN TIME 14.6 SECONDS (11.8-14.0)
[2019-03-08 10:26] LABS: PARTIAL THROMBOPLASTIN TIME 31.5 SECONDS (25.0-38.4)
--- NOTE | 2019-03-08 10:33 | REP ---
CT BRAIN WITHOUT CONTRAST: HISTORY: Dizziness. History of a fall. COMPARISON STUDY: September 13, 2010 CT FINDINGS: Digital preliminary ornamenter hand radiograph is unremarkable. The patient is edentulous. The bony calvarium is intact. There is moderate vascular calcification in the distal vertebral and distal carotid arteries. There is patchy opacification of the ethmoid sinuses. There is mucosal thickening and partial opacification of the left frontal and left sphenoid sinuses. No intraorbital abnormality is seen. On soft tissue window settings, there is moderate generalized volume loss intracranially. There is no evidence of intracranial hemorrhage. Mild small vessel changes. There is no evidence of acute infarct or mass. No extra-axial fluid collection or midline shift is seen. Findings are stable from comparison study September 13, 2010, except that there is more pronounced generalized atrophy. IMPRESSION: Generalized volume loss. Vascular calcification. No acute intracranial abnormality. Electronically Signed by Henry Eddy MD 03/08/2019 02:28 P
[2019-03-08 10:42] LABS: ALT/SGPT 21 U/L (12-78); BILIRUBIN,TOTAL 0.4 MG/DL (0.2-1.0); BLOOD UREA NITROGEN 34 MG/DL (7-18); CALCIUM LEVEL 8.8 MG/DL (8.8-10.2); CARBON DIOXIDE LEVEL 28 MEQ/L (21-32); CHLORIDE LEVEL 110 MEQ/L (98-107); CK-MB VALUE MASS < 1.0 NG/ML (<3.6); CPK CREATINE PHOSPHOKINASE 39 U/L (26-192); CREATININE FOR GFR 1.43 MG/DL (0.55-1.30); GLOMERULAR FILTRATION RATE 36.8 (>32); GLUCOSE, FASTING 100 MG/DL (70-100); MB/CK RELATIVE INDEX 2.56 (< OR =4); POTASSIUM SERUM 4.4 MEQ/L (3.5-5.1); SODIUM LEVEL 144 MEQ/L (136-145)
[2019-03-08 10:43] LABS: ALBUMIN 2.9 GM/DL (3.2-5.2); NT-PRO BNP 1159 PG/ML (<450); TOTAL PROTEIN 6.7 GM/DL (6.4-8.2); TROPONIN I < 0.02 NG/ML (< 0.10)
[2019-03-08] MEDS ORDERED: FERR325T3 PO (12:02)
[2019-03-08] MEDS ORDERED: ATEN50TA2 PO (12:02)
[2019-03-08] MEDS ORDERED: ONDANSETRON 4MG/2ML VIAL (J2405) As Ordered ONE (14:48)
[2019-03-08] MEDS ORDERED: PANTOPRAZOLE 40MG INJ (PROTONIX) (C9113) IV ONE (15:00)
[2019-03-08] MEDS ORDERED: ONDANSETRON 4MG/2ML VIAL (J2405) IV ONE (15:15)
[2019-03-08] MEDS ORDERED: NS 1,000 ML IV ONE (15:15)
[2019-03-08 15:16] LABS: BASO # 0.1 10^3/uL (0.0-0.2); BASO % 0.5 % (0.0-1.0); EOS # 0.2 10^3/uL (0.0-0.5); EOS % 1.2 % (0.0-3.0); HEMATOCRIT 23.8 % (36.0-47.0); HEMOGLOBIN 7.2 g/dl (12.0-15.5); LYMPH # 2.3 10^3/uL (1.5-5.0); LYMPH % 18.6 % (24.0-44.0); MEAN CORPUSCULAR HEMOGLOBIN 32.6 pg (27.0-33.0); MEAN CORPUSCULAR HGB CONC 30.3 g/dl (32.0-36.5); MEAN CORPUSCULAR VOLUME 107.7 fl (80.0-96.0); MONO # 0.5 10^3/uL (0.0-0.8); MONO % 4.1 % (0.0-5.0); NEUTROPHILS # 9.3 10^3/uL (1.5-8.5); NEUTROPHILS % 74.6 % (36.0-66.0); PLATELET COUNT, AUTOMATED 90 10^3/uL (150-450); RED BLOOD COUNT 2.21 10^6/uL (4.00-5.40); WHITE BLOOD COUNT 12.5 10^3/uL (4.0-10.0)
[2019-03-08 16:00] LABS: FERRITIN 45 NG/ML (8-252); IRON (FE) 84 UG/DL (50-170); PERCENT SATURATION 28.4 % (13.2-45.0); TOTAL IRON BINDING CAPACITY 296 UG/DL (250-450)
[2019-03-08] MEDS: PANTOPRAZOLE SODIUM 40 MG in D5W 50 ML IV SCH (16:00)
[2019-03-08] MEDS ORDERED: LIDOCAINE W/EPINEPHRINE 1% 20ML VIAL As Ordered ONE (16:10)
[2019-03-08] MEDS ORDERED: LIDOCAINE W/EPINEPHRINE 1% 20ML VIAL SC ONE (16:15)
[2019-03-08] MEDS: atenoloL 50 MG TAB PO SCH (20:20)
[2019-03-08] MEDS: DIGOXIN 0.0625MG PER 1/2TABLET PO SCH (20:20)
--- NOTE | 2019-03-08 22:28 | HPEPDOC ---
General Date of Admission Mar 08, 2019 at 15:18 Date of Service: Mar 08, 2019 Chief Complaint The patient is a 88-year-old female admitted with a reason for visit of Anterior Epistaxis Gib. Source: Patient, Family, RN/, Old records History of Present Illness 88 year old female who lives wit a friend was brought to the ED today for Epistaxis which started at bout 5 am. Patient has history of recurrent epistaxis with admissions and ED visits for this. As per patient she has it off and on every 1 to 2 weeks and most are small and stop with pressure or nasal clamps however today it was large amount and was not stopping so her friend called her son and Son brought her to the ED. In the ED it was first cauterized by silver nitrate but did not work. She refused rhino packing. She was waiting to be evaluated by ENT when she wanted to have a bowel movement. Stood got to the commode by herself. Did not have any movement so came back to the bed and sat on the side and had a syncopal episode and fell backwards on to the bed. Her vitals immediately after was stable in fact with elevated BPs. She had a deann in the ED. Her repeat HH dropped to 7.2 from 9 so was ordered 2 units of PRBC. She was seen by Dr Holt and was cauterized which stopped the bleeding. Patient is being admitted for Epistaxis, Syncopal episode and possible GIB. Evaluation in ED showed showed that she had positive orthostasis, she was soiled in urine when she came and as per PA seemed to be confused. On my evaluation and as per her son she was at her baseline. Says she is weak and son says she does get confused when she is sick however is independent in all her ADLS and takes her own medications. She also complained for a cough off and on with some phlegm production which Home Medications Scheduled Atenolol (Atenolol) 50 Mg Tablet, 50 MG PO BID, (Reported) Digoxin (Digoxin) 125 Mcg Tablet, 62.5 MCG PO QHS, (Reported) Ferrous Sulfate (Ferrous Sulfate) 325 Mg Tablet., 325 MG PO DAILY, (Reported) Ramipril (Ramipril) 5 Mg Cap, 5 MG PO BID, (Reported) Simvastatin (Simvastatin) 20 Mg Tab, 20 MG PO QHS, (Reported) Scheduled PRN Acetaminophen (Tylenol Arthritis) 650 Mg Tab, 650 MG PO Q8H PRN for PAIN, (Reported) Nitroglycerin (Nitrostat) 0.4 Mg Subl, 0.4 MG SL NITRO PRN for CHEST PAIN, (Reported) Simethicone (Simethicone) 180 Mg Capsule, 180 MG PO DAILY PRN for GAS PAIN, (Reported) Allergies Coded Allergies: meperidine (Verified Allergy, Severe, ANAPHYLAXIS, 01/10/19) temazepam (Verified Allergy, Unknown, TRANQULIZER UNSPECIFIED, 01/10/19) thiopental (Verified Adverse Reaction, Severe, UNRESPONSIVE, 01/10/19) Past Medical History Medical History Recurrent Epistaxis Coronary artery disease s/p stent 10 years ago. Afib Sick sinus syndrome status post pacemaker. 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 Hypertension and hypertensive heart disease, gastroesophageal (GE) reflux, hyperlipidemia, osteoporosis Kyphosis PAT. Chronic thrombocytopenia. Hematuria Chronic anemia Surgical History 1. Pacemaker insertion. 2. Cardiac stent. 3. Bilateral cataract surgery. Family History reviewed with patient and son . No pertinent history. Social History * Smoker: Denies Alcohol: Denies Drugs: denies A-FIB/CHADSVASC A-FIB History Current/History of A-Fib/PAF?: Yes Current PO Anticoag Therapy: No Review of Systems Constitutional: Reports: Fatigue; Denies: Chills, Fever, Night Sweats Eyes: Denies: Pain, Vision change ENT: Reports: Epistaxis Skin: Denies: Rash, Lesions, Breakdown Pulmonary: Reports: Cough; Denies: Dyspnea, Pleuritic Chest Pain, Other Symptoms Cardiovascular: Reports: Lt Headedness; Denies: Chest Pain, Palpitations, Orthopnea, Paroxysmal Noc. Dyspnea Gastrointestinal: Denies: Nausea, Vomiting, Abdominal Pain, Diarrhea Genitourinary: Reports: Incontinence, Hematuria; Denies: Dysuria, Frequency Hematologic: Reports: Bruising Musculoskeletal: Reports: Back Pain Neurological: Denies: Weakness, Numbness, Change in speech, Confusion Psych: Reports: Memory Issues Physical Examination General Exam: Positive: Alert, Cooperative, No Acute Distress Eye Exam: Positive: PERRLA, Conjunctiva & lids normal, EOMI; Negative: Sclera icteric ENT Exam: Positive: Atraumatic, Mucous membr. moist/pink, Pharynx Normal Neck Exam: Positive: Supple; Negative: JVD, thyromegaly Chest Exam: Positive: Clear to auscultation, Normal air movement Heart Exam: Positive: Tachycardic, Regular Rhythm Telemetry: Positive: No significant arrhythmia Abdomen Exam: Positive: BS Hyperactive, Soft; Negative: Tenderness, Hepatospenomegaly Extremity Exam: Positive: Normal pulses; Negative: Clubbing, Cyanosis, Edema Skin Exam: Positive: Nl turgor and temperature; Negative: Breakdown, Lesion Vital Signs Vital Signs Date Time Temp Pulse Resp B/P (MAP) Pulse Ox O2 Delivery O2 Flow Rate FiO2 03/08/19 16:00 61 142/65 (90) 95 03/08/19 15:16 20 Room Air 03/08/19 14:19 96.2 Laboratory Data Labs 24H Laboratory Tests 2 03/08/19 09:49: Prothrombin Time 14.6H, Prothromb Time International Ratio 1.17, Activated Partial Thromboplast Time 31.5 03/08/19 09:59: Immature Granulocyte % (Auto) 0.5, Neutrophils (%) (Auto) 71.9H, Lymphocytes (%) (Auto) 15.3L, Monocytes (%) (Auto) 6.5H, Eosinophils (%) (Auto) 5.1H, Basophils (%) (Auto) 0.7, Neutrophils # (Auto) 8.0, Lymphocytes # (Auto) 1.7, Monocytes # (Auto) 0.7, Eosinophils # (Auto) 0.6H, Basophils # (Auto) 0.1, Nucleated Red Blood Cells % (auto) 0.0, Anion Gap 6L, Glomerular Filtration Rate 36.8, Calcium Level 8.8, Iron Level 84, Total Iron Binding Capacity 296, Transferrin % Saturation 28.4, Ferritin 45, Total Bilirubin 0.4, Aspartate Amino Transf (AST/SGOT) 23, Alanine Aminotransferase (ALT/SGPT) 21, Alkaline Phosphatase 67, Total Creatine Kinase 39, Creatine Kinase MB < 1.0, Creatine Kinase MB Relative Index 2.56, Troponin I < 0.02, AG-Suz-N-Type Natriuretic Peptide 1159H, Total Protein 6.7, Albumin 2.9L, Albumin/Globulin Ratio 0.76L 03/08/19 11:35: Lactic Acid Level 1.7 03/08/19 12:56: Urine Color YELLOW, Urine Appearance HAZY, Urine pH 5.0, Urine Specific Hepler 1.017, Urine Protein 2+H, Urine Glucose (UA) NEGATIVE, Urine Ketones NEGATIVE, Urine Blood 2+H, Urine Nitrite NEGATIVE, Urine Bilirubin NEGATIVE, Urine Urobilinogen 0.2, Urine Leukocyte Esterase NEGATIVE, Urine WBC (Auto) 2, Urine RBC (Auto) 43H, Urine Hyaline Casts (Auto) 0, Urine Bacteria (Auto) NEGATIVE, Urine Squamous Epithelial Cells 0, Urine Sperm (Auto) 03/08/19 15:03: Immature Granulocyte % (Auto) 1.0, Neutrophils (%) (Auto) 74.6H, Lymphocytes (%) (Auto) 18.6L, Monocytes (%) (Auto) 4.1, Eosinophils (%) (Auto) 1.2, Basophils (%) (Auto) 0.5, Neutrophils # (Auto) 9.3H, Lymphocytes # (Auto) 2.3, Monocytes # (Auto) 0.5, Eosinophils # (Auto) 0.2, Basophils # (Auto) 0.1, Nucleated Red Blood Cells % (auto) 0.0, Immature Platelet Fraction 3.1 CBC/BMP Laboratory Tests 03/08/19 09:59 03/08/19 15:03 Microbiology Microbiology 03/08/19 Blood Culture, Received Pending 03/08/19 Blood Culture, Received Pending Assessment/Plan 88 year old female who lives wit a friend was brought to the ED today for Epistaxis which started at bout 5 am. Patient has history of recurrent epistaxis with admissions and ED visits for this. As per patient she has it off and on every 1 to 2 weeks and most are small and stop with pressure or nasal clamps however today it was large amount and was not stopping so her friend called her son and Son brought her to the ED. In the ED it was first cauterized by silver nitrate but did not work. She refused rhino packing. She was waiting to be evaluated by ENT when she wanted to have a bowel movement. Stood got to the commode by herself. Did not have any movement so came back to the bed and sat on the side and had a syncopal episode and fell backwards on to the bed. Her vitals immediately after was stable in fact with elevated BPs. She had a deann in the ED. Her repeat HH dropped to 7.2 from 9 so was ordered 2 units of PRBC. She was seen by Dr Holt and was cauterized which stopped the bleeding. Patient is being admitted for Epistaxis, Syncopal episode and possible GIB. Persistent epistaxis. was cauterised by Dr Holt Acute blood loss anemia due to recurrent severe epistaxis rule out other causes of GIB patient never had a colonoscopy she had refused will transfuse 2 units prbc hh q6 hours PPI infusion as per son she had ulcers before Syncope in the ED probably orthostatic hypotension due to bleeding and hypovolemia. will monitor on telemetry for any cardiac arrhythmias. Associated possibility of GIB She had a moderate to large amount ot deann ed For now monitor HH and transfuse prn. SEVERE protein calorie malnutrition. Coronary artery disease s/p stent 10 years ago. Afib with Sick sinus syndrome status post pacemaker. continue atenolol and digoxin but hold ramipril. not on any anticoagulant. Hypertension and hypertensive heart disease continue atenolol hold ramipril. gastroesophageal (GE) reflux, PPI hyperlipidemia continue statin when eating PO. Plan / VTE VTE Prophylaxis Ordered?: Yes MARILYN BHATIA MD Mar 08, 2019 16:56
[2019-03-09] VITALS (10 sets, daily range): BP systolic 140–192; BP diastolic 65–88
[2019-03-09] MEDS: PANTOPRAZOLE SODIUM 40 MG in D5W 50 ML IV SCH ×4 (01:18→11:56)
[2019-03-09 02:19] LABS: HEMATOCRIT 28.3 % (36.0-47.0)
[2019-03-09 05:42] LABS: BASO # 0.1 10^3/uL (0.0-0.2); BASO % 0.5 % (0.0-1.0); EOS # 0.2 10^3/uL (0.0-0.5); EOS % 1.7 % (0.0-3.0); HEMATOCRIT 26.7 % (36.0-47.0); HEMOGLOBIN 8.6 g/dl (12.0-15.5); LYMPH # 2.3 10^3/uL (1.5-5.0); MEAN CORPUSCULAR HEMOGLOBIN 31.5 pg (27.0-33.0); MEAN CORPUSCULAR HGB CONC 32.2 g/dl (32.0-36.5); MEAN CORPUSCULAR VOLUME 97.8 fl (80.0-96.0); MONO # 0.9 10^3/uL (0.0-0.8); MONO % 9.4 % (0.0-5.0); NEUTROPHILS # 6.1 10^3/uL (1.5-8.5); NEUTROPHILS % 63.5 % (36.0-66.0); RED BLOOD COUNT 2.73 10^6/uL (4.00-5.40); WHITE BLOOD COUNT 9.6 10^3/uL (4.0-10.0)
[2019-03-09 05:54] LABS: PLATELET COUNT, AUTOMATED 70 10^3/uL (150-450)
[2019-03-09 06:20] LABS: CALCIUM LEVEL 7.9 MG/DL (8.8-10.2); CREATININE FOR GFR 1.36 MG/DL (0.55-1.30); POTASSIUM SERUM 4.6 MEQ/L (3.5-5.1)
[2019-03-09] MEDS: ramipriL 5 MG CAP PO SCH ×4 (08:33→20:32)
[2019-03-09] MEDS: atenoloL 50 MG TAB PO SCH ×3 (08:33→13:27)
[2019-03-09 11:00] LABS: FOLATE 8.9 NG/ML; VITAMIN B12 LEVEL 454 PG/ML
[2019-03-09 12:21] LABS: HEMATOCRIT 29.1 % (36.0-47.0); HEMOGLOBIN 9.5 g/dl (12.0-15.5)
[2019-03-09 15:27] LABS: HEMATOCRIT 31.7 % (36.0-47.0); HEMOGLOBIN 10.1 g/dl (12.0-15.5)
--- NOTE | 2019-03-09 17:17 | IPNPDOC ---
Subjective Date Seen The patient was seen on 03/09/19. Subjective Chief Complaint/HPI No complaints today, sleeping most of the day. Says she is very tired. Woke up late in the morning and afternoon and then took her medications. As per son she sdoes sleep quite a bit at home too when she is sick and has nose bleeding. No fever or chills,no further deann, no further nose bleeds. Will advance diet Objective Physical Examination General Exam: Positive: Alert, Cooperative, No Acute Distress Eye Exam: Positive: PERRLA, Conjunctiva & lids normal, EOMI; Negative: Sclera icteric ENT Exam: Positive: Atraumatic, Mucous membr. moist/pink, Pharynx Normal, Other ENT (bitemporal wasting. ) Neck Exam: Positive: Supple; Negative: JVD, thyromegaly Chest Exam: Positive: Clear to auscultation, Normal air movement Heart Exam: Positive: Bradycardic, Regular Rhythm, Normal S1, Normal S2 Telemetry: Positive: Sinus, Bradycardia Abdomen Exam: Positive: BS Hyperactive, Soft; Negative: Tenderness, Hepatospenomegaly Extremity Exam: Positive: Normal pulses; Negative: Clubbing, Cyanosis, Edema Skin Exam: Positive: Nl turgor and temperature; Negative: Breakdown, Lesion Assessment /Plan Assessment 88 year old female who lives with a friend was brought to the ED today for Epistaxis which started at bout 5 am. Patient has history of recurrent epistaxis with admissions and ED visits for this. As per patient she has it off and on every 1 to 2 weeks and most are small and stop with pressure or nasal clamps however today it was large amount and was not stopping so her friend called her son and Son brought her to the ED. In the ED it was first cauterized by silver nitrate but did not work. She refused rhino packing. She was waiting to be evaluated by ENT when she wanted to have a bowel movement. Stood got to the commode by herself. Did not have any movement so came back to the bed and sat on the side and had a syncopal episode and fell backwards on to the bed. Her vitals immediately after was stable in fact with elevated BPs. She had a deann in the ED. Her repeat HH dropped to 7.2 from 9 so was ordered 2 units of PRBC. She was seen by Dr Holt and was cauterized which stopped the bleeding. Patient was admitted for Epistaxis, Syncopal episode and possible GIB. Persistent epistaxis. was cauterized by Dr Holt no recurrence Acute blood loss anemia due to recurrent severe epistaxis rule out other causes of GIB if HH continues to drop inspite of transfusion patient never had a colonoscopy she had refused before. transfused 2 units prbc hh q6 hours will continue PPI Syncope in the ED probably orthostatic hypotension due to bleeding and hypovolemia. will monitor on telemetry for any cardiac arrhythmias. Telemetry shows sinus cristopher , no arrhythmias Associated possibility of GIB She had a moderate to large amount ot deann ED this is probably due to swallowed blood however may have other causes of GIB For now monitor HH and transfuse prn. SEVERE protein calorie malnutrition. with BMI of 18.4 bitemporal wasting. wasting of small muscles of hand and accessory chest wall muscles. Coronary artery disease s/p stent 10 years ago. No issues now Afib with Sick sinus syndrome status post pacemaker. continue atenolol and digoxin and ramipril. not on any anticoagulant. Hypertension and hypertensive heart disease continue atenolol and ramipril. Gastroesophageal (GE) reflux, PPI hyperlipidemia continue statin when eating PO. Dispo: If HH stable discharge in 24 hours after PT/Ot Plan/VTE VTE Prophylaxis Ordered?: Yes VS, I&O, 24H, Fishbone Vital Signs/I&O Vital Signs Date Time Temp Pulse Resp B/P (MAP) Pulse Ox O2 Delivery O2 Flow Rate FiO2 03/09/19 13:27 192/88 03/09/19 13:27 51 03/09/19 13:19 97.5 18 95 Room Air I&O- Last 24 Hours up to 6 AM 03/09/19 05:59 Intake Total 1250 ml Output Total 0 ml Balance 1250 ml Laboratory Data 24H LABS Laboratory Tests 2 03/09/19 05:25: Immature Granulocyte % (Auto) 0.9, Neutrophils (%) (Auto) 63.5, Lymphocytes (%) (Auto) 24.0, Monocytes (%) (Auto) 9.4H, Eosinophils (%) (Auto) 1.7, Basophils (%) (Auto) 0.5, Neutrophils # (Auto) 6.1, Lymphocytes # (Auto) 2.3, Monocytes # (Auto) 0.9H, Eosinophils # (Auto) 0.2, Basophils # (Auto) 0.1, Nucleated Red Blood Cells % (auto) 0.0, Anion Gap 5L, Glomerular Filtration Rate 39.0, Calcium Level 7.9L CBC/BMP Laboratory Tests 03/09/19 02:08 03/09/19 05:25 03/09/19 12:06 03/09/19 15:11 Microbiology Microbiology 03/08/19 Blood Culture - Preliminary, Resulted No growth after 24 hours . All specim... 03/08/19 Blood Culture - Preliminary, Resulted No growth after 24 hours . All specim... MARILYN BHATIA MD Mar 09, 2019 17:17
[2019-03-09] MEDS ORDERED: SLF 3 ML SYR IV PRN (17:45)
[2019-03-09] MEDS: PANTOPRAZOLE 40MG INJ (PROTONIX) (C9113) IV SCH (20:32)
[2019-03-09] MEDS: DIGOXIN 0.0625MG PER 1/2TABLET PO SCH (20:32)
[2019-03-09] MEDS: atenoloL 25 MG TAB PO SCH (20:33)
[2019-03-09] MEDS: SLF 3 ML SYR IV SCH (21:03)
[2019-03-09 22:09] LABS: HEMATOCRIT 26.6 % (36.0-47.0); HEMOGLOBIN 8.5 g/dl (12.0-15.5)
[2019-03-10] VITALS: BP 140/67
[2019-03-10 04:00] VITALS: BP_SYST 121; BP_SYST 151; BP_SYST 175; BP_DIAS 58; BP_DIAS 72; BP_DIAS 81
[2019-03-10 04:16] LABS: BASO # 0.1 10^3/uL (0.0-0.2); BASO % 0.6 % (0.0-1.0); EOS # 0.7 10^3/uL (0.0-0.5); EOS % 6.2 % (0.0-3.0); HEMATOCRIT 29.3 % (36.0-47.0); HEMOGLOBIN 9.4 g/dl (12.0-15.5); LYMPH # 2.4 10^3/uL (1.5-5.0); LYMPH % 23.1 % (24.0-44.0); MEAN CORPUSCULAR HGB CONC 32.1 g/dl (32.0-36.5); MEAN CORPUSCULAR VOLUME 99.7 fl (80.0-96.0); MONO # 0.7 10^3/uL (0.0-0.8); MONO % 6.3 % (0.0-5.0); NEUTROPHILS # 6.6 10^3/uL (1.5-8.5); NEUTROPHILS % 63.1 % (36.0-66.0); RED BLOOD COUNT 2.94 10^6/uL (4.00-5.40); WHITE BLOOD COUNT 10.5 10^3/uL (4.0-10.0)
[2019-03-10 04:22] LABS: CALCIUM LEVEL 7.9 MG/DL (8.8-10.2); CREATININE FOR GFR 1.61 MG/DL (0.55-1.30); GLOMERULAR FILTRATION RATE 32.1 (>32); POTASSIUM SERUM 4.5 MEQ/L (3.5-5.1)
[2019-03-10 04:32] LABS: PLATELET COUNT, AUTOMATED 80 10^3/uL (150-450)
[2019-03-10] MEDS: SLF 3 ML SYR IV SCH (05:06)
--- NOTE | 2019-03-10 05:53 | ECGEPIP ---
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
[2019-03-10 06:00] VITALS: BP 178/72
[2019-03-10 08:00] VITALS: BP 175/67
[2019-03-10 08:39] VITALS: BP 175/67
[2019-03-10] MEDS: atenoloL 25 MG TAB PO SCH (08:39)
[2019-03-10] MEDS: PANTOPRAZOLE 40MG INJ (PROTONIX) (C9113) IV SCH (08:39)
[2019-03-10] MEDS: ramipriL 5 MG CAP PO SCH (08:39)
[2019-03-10 09:21] LABS: HEMATOCRIT 26.5 % (36.0-47.0); HEMOGLOBIN 8.4 g/dl (12.0-15.5)
[2019-03-10] MEDS ORDERED: PROT40IN4 PO (11:12)
[2019-03-10] MEDS ORDERED: PROT20TA11 PO (12:07)
[2019-03-10 12:11] VITALS: BP 150/78
[2019-03-10] MEDS ORDERED: ATEN25TA PO (12:58)
--- NOTE | 2019-03-10 13:01 | DS.PDOC ---
Discharge Summary General Date of Admission Mar 08, 2019 at 15:18 Date of Discharge 03/10/2019 Discharge Summary PROCEDURES PERFORMED DURING STAY: [None]. ADMITTING DIAGNOSES: 1. Persistent Epistaxis 2. Acute blood loss Anemia 3. Syncope in ED 4. Severe protein calorie malnutrition 6. CAD 7. A-fib 8. SSS with pacemaker 9. HTN/hypertensive heart disease 10. HLD 11. GERD DISCHARGE DIAGNOSES: 1. Recurrent Severe Epistaxis 2. Acute blood loss Anemia 3. Syncope in ED due to orthostatic hypotension 5. Severe protein calorie malnutrition SECONDARY DIAGNOSIS: Coronary artery disease s/p stent 10 years ago. Chronic Afib Sick sinus syndrome status post pacemaker. 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 Hypertension and hypertensive heart disease, GERD hyperlipidemia, osteoporosis Kyphosis PAT. Chronic thrombocytopenia. Hematuria Chronic anemia COMPLICATIONS/CHIEF COMPLAINT: Anterior Epistaxis Gib. HISTORY OF PRESENT ILLNESS: "88 year old female who lives wit a friend was br ought to the ED today for Epistaxis which started at bout 5 am. Patient has history of recurrent epistaxis with admissions and ED visits for this. As per patient she has it off and on every 1 to 2 weeks and most are small and stop with pressure or nasal clamps however today it was large amount and was not stopping so her friend called her son and Son brought her to the ED. In the ED it was first cauterized by silver nitrate but did not work. She refused rhino packing. She was waiting to be evaluated by ENT when she wanted to have a bowel movement. Stood got to the commode by herself. Did not have any movement so came back to the bed and sat on the side and had a syncopal episode and fell sarahi kwards on to the bed. Her vitals immediately after was stable in fact with elevated BPs. She had a deann in the ED. Her repeat HH dropped to 7.2 from 9 so was ordered 2 units of PRBC. She was seen by Dr Holt and was cauterized which stopped the bleeding. Patient is being admitted for Epistaxis, Syncopal episode and possible GIB. Evaluation in ED showed showed that she had positive orthostasis, she was soiled in urine when she came and as per PA seemed to be confused. On my evaluation and as per her son she was at her baseline. Says she is weak and son says she does get confused when she is sick however is independent in all her ADLS and takes her own medications. She also complained for a cough off and on with some phlegm production which" HOSPITAL COURSE: Pt was admitted as noted above after receiving 2 units PRBCs in the ED. Dr. Holt achieved hemostasis via cauterization. Protonix infusion started as pt has had ulcers in the past per her son. Pt significantly orthostatic and protein malnourished. Telemetry revealed Sinus bradycardia, no arrhythmia; Atenolol 50mg BID reduced to 25mg BID which pt tolerated well. BP remained stable. No episodes of epistaxis while inpt. Pt assessed and cleared by PT/OT for discharge with services. DISCHARGE MEDICATIONS: Please see below. ALLERGIES: Please see below. PHYSICAL EXAMINATION ON DISCHARGE: VITAL SIGNS: Please see below. General Exam: Positive: Alert, Cooperative, No Acute Distress Eye Exam: Positive: PERRLA, Conjunctiva & lids normal, EOMI; Negative: Sclera icteric ENT Exam: Positive: Atraumatic, Mucous membr. moist/pink, Pharynx Normal, Other ENT (bitemporal wasting. ) Neck Exam: Positive: Supple; Negative: JVD, thyromegaly Chest Exam: Positive: Clear to auscultation, Normal air movement Heart Exam: Positive: Bradycardic, Regular Rhythm, Normal S1, Normal S2 Telemetry: Positive: Sinus, Bradycardia Abdomen Exam: Positive: BS Hyperactive, Soft; Negative: Tenderness, Hepatospenomegaly Extremity Exam: Positive: Normal pulses; Negative: Clubbing, Cyanosis, Edema Skin Exam: Positive: Nl turgor and temperature; Negative: Breakdown, Lesion LABORATORY DATA: Please see below. IMAGING: Chest, 2 view PA, Lat Impression: Cardiomegaly with pacemaker. Right lower lobe granuloma. Otherwise no active disease. CT Head without contrast IMPRESSION: Generalized volume loss. Vascular calcification. No acute intracranial abnormality. ACTIVITY: Walk with walker DIET: As tolerated DISCHARGE PLAN: Cleared by PT to be d/c home with services. Follow-up with PCP 3-5 days. DISPOSITION: D/C home with services DISCHARGE INSTRUCTIONS: 1. Follow-up with PCP 3-5 days. ITEMS TO FOLLOWUP ON ON OUTPATIENT: 1. Follow-up with PCP 3-5 days. DISCHARGE CONDITION: [Stable]. TIME SPENT ON DISCHARGE: 32 minutes Vital Signs/I&Os Vital Signs Date Time Temp Pulse Resp B/P (MAP) Pulse Ox O2 Delivery O2 Flow Rate FiO2 03/10/19 08:39 56 03/10/19 08:39 175/67 03/10/19 08:00 97.6 18 99 Room Air I&O- Last 24 Hours up to 6 AM 03/10/19 05:59 Intake Total 150 ml Output Total 300 ml Balance -150 ml Laboratory Data Labs 24H Laboratory Tests 2 03/10/19 03:36: Immature Granulocyte % (Auto) 0.7, Neutrophils (%) (Auto) 63.1, Lymphocytes (%) (Auto) 23.1L, Monocytes (%) (Auto) 6.3H, Eosinophils (%) (Auto) 6.2H, Basophils (%) (Auto) 0.6, Neutrophils # (Auto) 6.6, Lymphocytes # (Auto) 2.4, Monocytes # (Auto) 0.7, Eosinophils # (Auto) 0.7H, Basophils # (Auto) 0.1, Nucleated Red Blood Cells % (auto) 0.0, Immature Platelet Fraction 3.8 03/10/19 03:48: Anion Gap 5L, Glomerular Filtration Rate 32.1, Calcium Level 7.9L CBC/BMP Laboratory Tests 03/09/19 15:11 03/09/19 21:51 03/10/19 03:36 03/10/19 03:48 03/10/19 09:04 Microbiology Microbiology 03/08/19 Blood Culture - Preliminary, Resulted No growth after 24 hours . All specim... 03/08/19 Blood Culture - Preliminary, Resulted No Growth after 48 hours. All Specime... Discharge Medications Scheduled Atenolol (Atenolol) 25 Mg Tablet, 25 MG PO BID Digoxin (Digoxin) 125 Mcg Tablet, 62.5 MCG PO QHS, (Reported) Ferrous Sulfate (Ferrous Sulfate) 325 Mg Tablet.dr, 325 MG PO DAILY, (Reported) Pantoprazole Sodium (Protonix) 20 Mg Tablet.dr, 20 MG PO DAILY Ramipril (Ramipril) 5 Mg Cap, 5 MG PO BID, (Reported) Simvastatin (Simvastatin) 20 Mg Tab, 20 MG PO QHS, (Reported) Scheduled PRN Acetaminophen (Tylenol Arthritis) 650 Mg Tab, 650 MG PO Q8H PRN for PAIN, (Reported) Nitroglycerin (Nitrostat) 0.4 Mg Subl, 0.4 MG SL NITRO PRN for CHEST PAIN, (Reported) Simethicone (Simethicone) 180 Mg Capsule, 180 MG PO DAILY PRN for GAS PAIN, (Reported) Allergies Coded Allergies: meperidine (Verified Allergy, Severe, ANAPHYLAXIS, 01/10/19) temazepam (Verified Allergy, Unknown, TRANQULIZER UNSPECIFIED, 01/10/19) thiopental (Verified Adverse Reaction, Severe, UNRESPONSIVE, 01/10/19) MARIA D SIERRA PA-C Mar 10, 2019 13:01 MARILYN BHATIA MD Mar 10, 2019 22:18
== END 2019-03-10 14:10 | disposition home health service (06) | DRG 150 ==
LOC: M ED 08:55 → M ED INP 15:18 → ENRESERV 15:27 → M PCU 17:13
PROVIDERS: ADMIT Internal Medicine Nephrology; ATTEND Internal Medicine Nephrology
PROC: 30233N1 Transfusion of Nonautologous Red Blood Cells into Peripheral Vein, Percutaneous Approach (ICD-10-PCS; principal; 2019-03-08)
DX: R04.0 Epistaxis (principal); E43 Unspecified severe protein-calorie malnutrition; D62 Acute posthemorrhagic anemia; I48.20 Chronic atrial fibrillation, unspecified; I95.1 Orthostatic hypotension; I11.9 Hypertensive heart disease without heart failure; K21.9 Gastro-esophageal reflux disease without esophagitis; Z95.0 Presence of cardiac pacemaker; I25.10 Atherosclerotic heart disease of native coronary artery without angina pectoris; Z95.2 Presence of prosthetic heart valve; E78.5 Hyperlipidemia, unspecified; M81.0 Age-related osteoporosis without current pathological fracture; D69.6 Thrombocytopenia, unspecified; Z85.828 Personal history of other malignant neoplasm of skin; M40.209 Unspecified kyphosis, site unspecified; Z79.899 Other long term (current) drug therapy; Z88.8 Allergy status to other drugs, medicaments and biological substances